=== PATIENT | female | born 1995 | race Caucasian/White ===

== ENCOUNTER 2023-03-11 15:26 | Emergency (ER) | payer OTHER, SELFPAY ==
[2023-03-11 15:40] VITALS: BP 142/86; PULSE 89; RESP 16; TEMP 36.4; O2SAT 100
--- NOTE | 2023-03-11 16:49 | ED.GENADULT ---
HPI - General Adult General Chief complaint: Urogenital-Female Stated complaint: poss uti Source: patient Mode of arrival: ambulatory Limitations: no limitations History of Present Illness HPI narrative: Patient presents for evaluation of urinary symptoms for last 4 days. Symptoms include urinary urgency, dysuria, lower back pain, suprapubic pressure, and urinary frequency. She also reports some hot flashes and nausea. She has had similar symptoms in the past with urinary tract infections. She denies any chills, vomiting, vaginal bleeding or discharge. LMP last week in January. She is sexually active with one male partner, not using contraception.l Related Data Home Medications Medication Instructions Recorded Confirmed buspirone 10 mg tablet mg 03/11/23 cyclobenzaprine 5 mg tablet mg 03/11/23 hydroxyzine pamoate 25 mg capsule mg 03/11/23 lamotrigine 25 mg tablet mg 03/11/23 quetiapine 300 mg tablet,extended mg PO 03/11/23 release 24 hr Allergies Allergy/AdvReac Type Severity Reaction Status Date / Time Penicillins Allergy Unknown Verified 03/11/23 15:38 Review of Systems Review of Systems: CONSTITUTIONAL: Reports hot flashes. Denies chills. EYES: Denies visual changes, redness, or discharge. ENT: Denies rhinorrhea, congestion, sore throat, or otalgia. CARDIOVASCULAR: Denies chest pain, palpitations, or edema. RESPIRATORY: Denies cough or dyspnea. GASTROINTESTINAL: Reports suprapubic pressure and nausea. Denies vomiting and diarrhea GENITOURINARY: Reports urinary urgency, frequency, dysuria. Denies hematuria, vaginal bleeding/discharge SKIN: Denies rash or itching. MUSCULOSKELETAL: Reports low back pain. Denies joint pain, or myalgia. NEUROLOGIC: Denies headache, numbness, dizziness, or weakness. PSYCHIATRIC: Denies anxiety or depression. [facility] Past Medical History Medical History Anxiety Surgical History Surgical History No pertinent past surgical history Family History Family History Mother Family history non-contributory Social History Social History Substance use: never Gender identity (if verbalized by the patient): Female Sexual Orientation (if Verbalized by the Patient): Straight or Heterosexual Spiritual care concerns: No Exam Narrative: GENERAL: Well-appearing, well-nourished, and in no acute distress. HEAD: Normocephalic, atraumatic. EYES: PERRLA and EOMI. ENT: Nares clear, no rhinorrhea or epistaxis. Mucous membranes moist. Oropharynx without tonsillar hypertrophy exudate or other lesions. Bilateral TMs pearly humphrey nonbulging NECK: Supple. No adenopathy or masses. No carotid bruits or JVD CHEST: Clear to auscultation. No respiratory distress. No wheezes rales or rhonchi HEART: Regular rate and rhythm. No murmur heard. Normal peripheral pulses. ABDOMEN: Soft, nontender, nondistended, normal active bowel sounds. BACK: No CVA tenderness EXTREMITIES: Normal range of motion. No edema. SKIN: Warm, dry, no rash. NEURO: No focal deficits. Alert and oriented x3. PSYCH: Normal mood and affect. Course Course Emergency Course: This is a 27-year-old female who presented for evaluation of urinary symptoms consistent with those previously experience with urinary tract infections in the past. Positive leukocytes today. Will treat with Macrobid. Increase hydration. Pyridium for burning. Follow up with primary provider. Go to the ER for worsening symptoms. Patient in agreement with plan care Level of Care: Express Care Visit Vital Signs Vital signs: Vital Signs Temperature 36.4 C L 03/11/23 15:40 Pulse Rate 89 03/11/23 15:40 Respiratory Rate 16 03/11/23 15:40 Blood Pressure 142/86 H 03/11/23 15:40 Pulse O
== END 2023-03-11 17:01 | disposition home or self-care (01) ==
PROVIDERS: Emergency Provider Nurse Practitioner; PCP Family Medicine
DX: N39.0 Urinary tract infection, site not specified (principal); F41.9 Anxiety disorder, unspecified
CPT/HCPCS: 81003; 87077; 87086; 87186; 99213; G0463

== ENCOUNTER 2023-03-15 17:43 | Emergency (ER) | payer OTHER, SELFPAY ==
[2023-03-15 17:46] VITALS: BP 172/105; PULSE 136; RESP 20; TEMP 36.8; O2SAT 98
--- NOTE | 2023-03-15 18:41 | ED.FEMALEGU ---
HPI - Female Genitourinary General Chief complaint: Urogenital-Female Stated complaint: UTI still bad Time Seen by Provider: 03/15/23 18:35 Source: patient and RN notes reviewed Mode of arrival: ambulatory Limitations: no limitations History of Present Illness HPI Narrative: 27-year-old female presents complaint of ?urinary urgency, dysuria, lower back pain, suprapubic pressure, and urinary frequency.? Reports hot flashes have resolved since onset. Patient was seen on 03/11/2023 for the same complaint, prescribed Macrobid and Pyridium. She reports compliance with medication. Denies improvement in symptoms. She has had similar symptoms in the past with urinary tract infections.? She denies any chills, vomiting, vaginal bleeding or discharge.? LMP last week in January.? She is sexually active with one male partner, not using contraception. Denies concern for STD. Related Data Home Medications Medication Instructions Recorded Confirmed buspirone 10 mg tablet mg 03/11/23 cyclobenzaprine 5 mg tablet mg 03/11/23 hydroxyzine pamoate 25 mg capsule mg 03/11/23 lamotrigine 25 mg tablet mg 03/11/23 quetiapine 300 mg tablet,extended mg PO 03/11/23 release 24 hr Allergies Allergy/AdvReac Type Severity Reaction Status Date / Time Penicillins Allergy Unknown Verified 03/11/23 15:38 Review of Systems Review of Systems: CONSTITUTIONAL: Denies body aches, fever, chills, or sweats. CARDIOVASCULAR: Denies chest pain, palpitations, or edema. RESPIRATORY: Denies cough or dyspnea. GASTROINTESTINAL: Denies abdominal pain, nausea, vomiting, or diarrhea. GENITOURINARY: Reports dysuria, frequency, urgency, denies hematuria, flank pain SKIN: Denies rash, itching, or wounds. MUSCULOSKELETAL: Denies back pain or myalgia. [facility] Past Medical History Medical History Anxiety Surgical History Surgical History No pertinent past surgical history Family History Family History Mother Family history non-contributory Social History Social History Substance use: never Gender identity (if verbalized by the patient): Female Sexual Orientation (if Verbalized by the Patient): Straight or Heterosexual Spiritual care concerns: No Comments At time of signature, I have reviewed and agree with nursing past medical, surgical, social and family history unless otherwise noted. Please see nursing chart for further information. There is no relevant family history pertinent to the presenting complaint Exam Narrative: GENERAL: Well-appearing and in no acute distress. ENT: Mucous membranes pink and moist. NECK: Normal AROM. Supple. CHEST: No respiratory distress. Clear to auscultation. HEART: Regular rate and rhythm. ABDOMEN: Soft, nondistended, normal active bowel sounds. mild suprapubic tenderness with palpation. No CVA tenderness SKIN: Warm, dry, no rash. NEURO: No focal deficits. Alert and oriented x3. Gait steady. PSYCH: Anxious. Course Course Emergency Course: Patient is aware of diagnosis, understands and agrees to treatment plan. Anticipatory guidance given. Patient agrees to follow-up as directed and is aware of reasons to seek care at the emergency department. Portions of this record may have been created with voice recognition software Level of Care: Express Care Visit Vital Signs Vital signs: Vital Signs Temperature 98.2 F 03/15/23 17:46 Pulse Rate 136 H 03/15/23 17:46 Respiratory Rate 03/15/23 17:46 Blood Pressure 172/105 H 03/15/23 17:46 Pulse Oximetry 98 03/15/23 17:46 Oxygen Delivery Room Air 03/15/23 17:46 Temperature 98.2 F 03/15/23 17:46 Pulse Rate 136 H 03/15/23 17:46 Respiratory Rate 03/15/23 17:46 Blood Pressure 172/105 H 03/15
== END 2023-03-15 18:54 | disposition home or self-care (01) ==
PROVIDERS: Emergency Provider Nurse Practitioner Family; PCP Family Medicine
DX: N39.0 Urinary tract infection, site not specified (principal)
CPT/HCPCS: 99213; G0463

== ENCOUNTER 2024-05-09 20:54 | Observation (INO) | payer MEDICAID, SELFPAY ==
--- NOTE | ~2024-05-09 | CT_ITS ---
History: Altered mental status PROCEDURE: CT head without contrast. COMPARISON: None TECHNIQUE: Axial imaging of the head performed from the skull base to the vertex without IV contrast. Sagittal a nd coronal reformations obtained. DLP: 681 mGy-cm FINDINGS: The ventricles are normal in size, shape and position. There is no mass, mass effect or midline shift. There is no abnormal extra-axial fluid collection or intracranial hemorrhage. Visualized paranasal sinuses are clear. The mastoid air cells are well aerated. No acute displaced fractures within the overlying cranium. Impression: No acute intracranial hemorrhage or suspicious mass effect. Reviewed, dictated and finalized at location A. [employer] Impression: No acute intracranial hemorrhage or suspicious mass effect.
--- NOTE | ~2024-05-09 | CT_ITS ---
EXAMINATION: CT abdomen pelvis w con DATE: 05/10/2024 01:28 INDICATION: Right flank pain. TECHNIQUE: Computed tomography (CT) of the abdomen and pelvis was performed with 100 mL Omnipaque 350 intravenous contrast. Automated exposure control and iterative reconstruction technique were employe d. The dose-length product was 312.40 mGy-cm. COMPARISON: None. FINDINGS: The visualized portions of the lung bases are clear without pneumonia or pleural effusion. The heart size is normal. No pericardial effusion. The liver, gallbladder, spleen, pancreas, adrenal glands, and kidneys are normal. The appendix measures 9 mm in diameter, but there is no fat stranding around the appendix. There are no pathologically enlarged lymph nodes. There is no free intraperiton eal fluid. There is mild thoracic and lumbar spondylosis. IMPRESSION: 1. Appendiceal diameter of 9 mm without findings of inflammation. This finding is indeterminate for a cute appendicitis. Reviewed, dictated and finalized at location A. [employer] IMPRESSION: 1. Appendiceal diameter of 9 mm without findings of inflammation. This finding is indeterminate for acute appendicitis.
[2024-05-09 20:50] VITALS: BP 140/94; PULSE 100; RESP 18; TEMP 36.6; O2SAT 100
[2024-05-09 21:06] VITALS: PULSE 98
[2024-05-09 21:09] VITALS: BP 140/94; PULSE 95; RESP 17; TEMP 36.6; O2SAT 100
[2024-05-09 22:12] LABS: BEDSIDEPREGUCG Negative (Negative)
[2024-05-09 22:14] LABS: Glucose Point of Care 67 mg/dl (65-105)
[2024-05-09 22:53] LABS: Basophils Absolute Auto 0.1 K/mm3 (0.0-0.1); Basophils Percent Auto 0.6 % (0.2-1.2); Eosinophils Absolute Auto 0.2 K/mm3 (0-0.3); Eosinophils Percent Auto 1.9 % (0-4.4); Hematocrit 35.2 % (37.0-47.0); Hemoglobin 11.8 g/dL (12.0-15.0); Immature Granulocyte Absolute 0.02 K/mm3 (0.00-0.031); Immature Granulocyte Percent A 0.2 % (0-0.5); Lymphocytes Absolute Auto 1.96 K/mm3 (0.9-3.2); Lymphocytes Percent Auto 22.1 % (18.3-44.2); Mean Corpuscular HGB Conc 33.5 g/dl (32-36); Mean Corpuscular Hemoglobin 28.5 pg (26-34); Mean Platelet Volume 9.1 fl (7.4-10.4); Monocytes Absolute Auto 0.7 K/mm3 (0.1-0.6); Monocytes Percent Auto 7.7 % (2.6-8.5); Neutrophils Percent Auto 67.5 % (45.5-73.1); Platelet Count Result 348 k/mm3 (150-375); Red Blood Count 4.14 M/mm3 (4.2-5.4); Red Cell Distribution Width 12.6 % (11.5-14.5); White Blood Count 8.9 K/mm3 (4.5-10.0)
[2024-05-09 23:03] LABS: Acetaminophen < 10 ug/mL (10-30); Ammonia < 9 umol/L (9-30); Ethanol < 10 mg/dL (<10); Salicylate < 1.0 mg/dL (2-20)
[2024-05-09 23:03] LABS: Alanine Aminotransferase 20 U/L (6-35); Albumin Level 4.4 g/dL (3.5-5.1); Alkaline Phosphatase 100 U/L (38-126); Anion Gap 13 mmol/L (4-12); Aspartate Amino Transferase 29 U/L (14-36); Bilirubin,Total 1.6 mg/dL (0.2-1.3); Blood Urea Nitrogen 17 mg/dL (7-17); Calcium 9.2 mg/dL (8.4-10.2); Carbon Dioxide 21 mmol/L (22-30); Chloride 102 mmol/L (98-107); Creatine Kinase 278 U/L (30-135); Estimated CRCL calculation 91 ml/min; Estimated Glomerular Filt Rate > 60; Glucose 76 mg/dL (65-110); Potassium 3.6 mmol/L (3.4-5.0); Sodium 136 mmol/L (137-145)
[2024-05-09 23:25] LABS: Barbiturate Screen Urine Negative (Negative); Benzodiazepines Screen Urine Negative (Negative)
[2024-05-09 23:28] LABS: Add Urine Microscopic? YES; Appearance Urine Turbid (Clear); Bacteria Urine 4+ /hpf; Bilirubin Urine 2+ (Negative); Blood Urine 2+ (Negative); Color Urine Red (Yellow); Glucose Urine UA Negative (Negative); Ketones Urine 2+ mg/dL (Negative); Leukocyte Esterase Ur 2+ LEU/UL (Negative); Need Manual Microscopic Reviewed; Nitrate Urine Positive (Negative); Non Pathogenic Casts 0-2; Protein Urine 2+ mg/dL (Negative); RBC Urine >100 /hpf (0-2); Specific Grav Ur 1.034 (1.001-1.035); Squamous Epithelial Cell Urine Moderate /hpf (Few); Urobilinogen Urine 0.2 mg/dL (<2.0)
[2024-05-09 23:29] LABS: Cocaine Screen Urine Negative (Negative); Methadone Screen Urine Negative (Negative); Opiate Screen Urine Negative (Negative); Phencyclidine Screen Urine Negative (Negative)
[2024-05-09 23:31] LABS: WBC Urine 16-20 /hpf (0-3)
[2024-05-09 23:52] VITALS: BP 141/85; PULSE 101; RESP 18; O2SAT 100
[2024-05-10 00:18] LABS: Cannabinoid Screen Urine Negative (Negative)
[2024-05-10 00:47] LABS: Amphetamine Screen Urine Positive (Negative)
--- NOTE | 2024-05-10 01:39 | ED.AMS ---
HPI - Altered Mental Status General Chief Complaint: Altered Mental Status Stated Complaint: confused Time Seen by Provider: 05/09/24 21:34 Source: patient and EMS Mode of arrival: EMS Limitations: no limitations History of Present Illness HPI narrative: This is a 29-year-old female, with history of bipolar disorder, brought in by EMS after being found lying on the floor of a local business. The patient states she was walking around town though does not know why. EMS noted the same with orientation x2. The patient states she has not been taking her medications for bipolar disorder for the past several months. She complains of mild throbbing headache but denies weakness /numbness. She denies suicidal or homicidal ideations or hallucinations. She complains of mild suprapubic abdominal pain but has no other complaints at this time. Related Data Home Medications Medication Instructions Recorded Confirmed buspirone 10 mg tablet 15 mg PO BID 03/11/23 05/10/24 cyclobenzaprine 5 mg tablet 5 mg PO DAILY PRN Muscle Spasm 03/11/23 05/10/24 hydroxyzine pamoate 25 mg capsule 25 mg PO QID 03/11/23 05/10/24 lamotrigine 25 mg tablet 150 mg PO BID 03/11/23 05/10/24 quetiapine 300 mg tablet,extended 300 mg PO HS 03/11/23 05/10/24 release 24 hr multivitamin with minerals-folic 1 tablet PO DAILY 05/10/24 05/10/24 acid 0.4 mg tablet Allergies Allergy/AdvReac Type Severity Reaction Status Date / Time Penicillins Allergy Unknown Verified 05/09/24 21:07 Review of Systems Review of Systems: All systems reviewed & are unremarkable except as noted in HPI and below PMFSH Past Medical History Medical History (Updated 05/10/24 @ 07:55 by Timothy Sadler MD) Anxiety Bipolar disorder Surgical History Surgical History No pertinent past surgical history Family History Family History Mother Family history non-contributory Social History Social History Smoking status: Current every day smoker Alcohol intake: former Substance use: former Substance use type: former substance user Do You Feel Safe in your Home?: Yes Lack of Transportation: No Lack of Food: Sometimes True Current Housing: I Have Housing Concerned About Future Housing: YES Difficulty Paying Gas/Electric Bills: YES Difficulty Paying for Meds: YES Currently Unemployed: YES Education: Trade/Vocational Certificate Difficulty w/ Childcare or Family Care: No Gender identity (if verbalized by the patient): Female Sexual Orientation (if Verbalized by the Patient): Straight or Heterosexual Spiritual care concerns: Yes Exam Narrative: GENERAL: Well-developed, well-nourished, and in no acute distress. HEAD: Normocephalic, atraumatic. EYES: PERRLA and EOMI. CHEST: Clear to auscultation. No respiratory distress. No wheezes rales or rhonchi HEART: Regular rate and rhythm. No murmur heard. Normal peripheral pulses. ABDOMEN: Soft, mild right lower quadrant tenderness to palpation without rebound or guarding, nondistended, normal active bowel sounds. EXTREMITIES: Normal range of motion. No edema. SKIN: Warm, dry, no rash. NEURO: Alert and oriented x3. No focal deficit. Moving all 4 limbs spontaneously PSYCH: Flattened mood and affect. Course Course Emergency Course: 03:58 - imaging results delayed due to technical difficulties experience by Radiology overnight. Labs demonstrate mild anemia with hemoglobin of 11.8 but is otherwise unremarkable. Chemistries demonstrate mild hyponatremia with sodium of 136 but is otherwise unremarkable. CK mildly elevated at 278 with a normal creatinine of 0.7. The patient tested negative for ammonia, salicylates, acetaminophen or alcohol. Urine drug screen was positive for amphetamines. Urinalysis showed changes consistent with UTI. CT of the head not concerning for acute intracranial process. STAT Rad interpretation of CT abdomen pelvis demonstrates enlargement of the appendix to 9 mm without surrounding fluid are other obvious inflammatory changes. This was described as equivocal for Appendicitis. Considering the patient's tenderness and findings on urinalysis, I suspect pyelonephritis as the cause of her abdominal pain and altered mental status. Will treat with Rocephin. I discussed the patient with hospitalist, Dr. Kimble who accepts admission. Vital Signs Vital signs: Vital Signs Temperature 97.9 F 05/09/24 20:50 Pulse Rate 100 05/09/24 20:50 Respiratory Rate 18 05/09/24 20:50 Blood Pressure 140/94 H 05/09/24 20:50 Pulse Oximetry 100 05/09/24 20:50 Oxygen Delivery Room Air 05/09/24 20:50 Temperature 96.5 F L 05/10/24 04:45 Pulse Rate 96 05/10/24 04:45 Respiratory Rate 16 05/10/24 04:45 Blood Pressure 120/68 05/10/24 04:45 Pulse Oximetry 100 05/10/24 04:45 Oxygen Delivery Room Air 05/10/24 07:35 MDM - Altered Mental Status MDM Narrative Medical decision making narrative: Plan: Labs, imaging, test, reassess Differential Diagnosis Differential diagnosis: Likely hypoglycemia, hyponatremia, subarachnoid hemorrhage and other (drug/alcohol intoxication, , medication noncompliance, bipolar disorder, UTI, pyelonephritis, rhabdomyolysis, metabolic abnormality, other) Lab Data 05/09/24 22:45 05/09/24 22:46 Labs: Lab Results 05/09/24 05/09/24 05/09/24 Range/Units 22:09 22:11 22:45 WBC 8.9 (4.5-10.0) K/mm3 RBC 4.14 L (4.2-5.4) M/mm3 Hgb 11.8 L (12.0-15.0) g/dL Hct 35.2 L (37.0-47.0) % MCV 85.0 (80-100) fl MCH 28.5 (26-34) pg MCHC 33.5 (32-36) g/dl RDW 12.6 (11.5-14.5) % Plt Count 348 (150-375) k/mm3 MPV 9.1 (7.4-10.4) fl Immature Gran % (Auto) 0.2 (0-0.5) % Neut % (Auto) 67.5 (45.5-73.1) % Lymph % (Auto) 22.1 (18.3-44.2) % [place] % (Auto) 7.7 (2.6-8.5) % Eos % (Auto) 1.9 (0-4.4) % Baso % (Auto) 0.6 (0.2-1.2) % Lymph # (Auto) 1.96 (0.9-3.2) K/mm3 [place] # (Auto) 0.7 H (0.1-0.6) K/mm3 Eos # (Auto) 0.2 (0-0.3) K/mm3 Baso # (Auto) 0.1 (0.0-0.1) K/mm3 Abs Immat Gran (auto) 0.02 (0.00-0.031) K/mm3 Absolute Neuts (auto) 6.0 (1.3-6.7) K/mm3 Absolute Nucleated RBC 0.000 (0.0-0.012) K/mm3 Nucleated RBC % 0.0 (0.0-0.2) % Sodium (137-145) mmol/L Potassium (3.4-5.0) mmol/L Chloride (98-107) mmol/L Carbon Dioxide (22-30) mmol/L Anion Gap (4-12) mmol/L BUN (7-17) mg/dL Creatinine (0.7-1.0) mg/dL Estim Creat Clear Calc ml/min Estimated GFR (59 - ) Glucose (65-110) mg/dL POC Capillary Glucose 67 (65-105) mg/dl Calcium (8.4-10.2) mg/dL Total Bilirubin (0.2-1.3) mg/dL AST (14-36) U/L ALT (6-35) U/L Alkaline Phosphatase (38-126) U/L Ammonia < 9 L (9-30) umol/L Total Creatine Kinase (30-135) U/L Total Protein (6.3-8.2) g/dL Albumin (3.5-5.1) g/dL Urine Color Red H (Yellow) Urine Appearance Turbid H (Clear) Urine pH 5.0 (5.0-9.0) Ur Specific [place] 1.034 (1.001-1.035) Urine Protein 2+ H (Negative) mg/dL Urine Glucose (UA) Negative (Negative) mg/dL Urine Ketones 2+ H (Negative) mg/dL Ur Blood (Man) 2+ H (Negative) Urine Nitrate Positive H (Negative) Urine Bilirubin 2+ H (Negative) Urine Urobilinogen 0.2 (<2.0) mg/dL Add Ur Microanalysis Reviewed Leukocyte Esterase Rfl 2+ H (Negative) EVITA/UL Urine RBC >100 H (0-2) /hpf Urine WBC 16-20 H (0-3) /hpf Ur Squamous Epith Cells Moderate (Few) /hpf Urine Bacteria 4+ H /hpf Urine Casts 0-2 POC Urine HCG, Qual Negative (Negative) Salicylates < 1.0 L (2-20) mg/dL Urine Opiates Screen Negative (Negative) Urine Methadone Screen Negative (Negative) Acetaminophen < 10 L (10-30) ug/mL Ur Barbiturates Screen Negative (Negative) Ur Phencyclidine Scrn Negative (Negative) Ur Amphetamine Screen Positive A (Negative) U Benzodiazepines Scrn Negative (Negative) Urine Cocaine Screen Negative (Negative) U Cannabinoids Screen Negative (Negative) Ethyl Alcohol < 10 (<10) mg/dL 05/09/24 Range/Units 22:46 WBC (4.5-10.0) K/mm3 RBC (4.2-5.4) M/mm3 Hgb (12.0-15.0) g/dL Hct (37.0-47.0) % MCV (80-100) fl MCH (26-34) pg MCHC (32-36) g/dl RDW (11.5-14.5) % Plt Count (150-375) k/mm3 MPV (7.4-10.4) fl Immature Gran % (Auto) (0-0.5) % Neut % (Auto) (45.5-73.1) % Lymph % (Auto) (18.3-44.2) % [place] % (Auto) (2.6-8.5) % Eos % (Auto) (0-4.4) % Baso % (Auto) (0.2-1.2) % Lymph # (Auto) (0.9-3.2) K/mm3 [place] # (Auto) (0.1-0.6) K/mm3 Eos # (Auto) (0-0.3) K/mm3 Baso # (Auto) (0.0-0.1) K/mm3 Abs Immat Gran (auto) (0.00-0.031) K/mm3 Absolute Neuts (auto) (1.3-6.7) K/mm3 Absolute Nucleated RBC (0.0-0.012) K/mm3 Nucleated RBC % (0.0-0.2) % Sodium 136 L (137-145) mmol/L Potassium 3.6 (3.4-5.0) mmol/L Chloride 102 (98-107) mmol/L Carbon Dioxide 21 L (22-30) mmol/L Anion Gap 13 H (4-12) mmol/L BUN 17 (7-17) mg/dL Creatinine 0.70 (0.7-1.0) mg/dL Estim Creat Clear Calc 91 ml/min Estimated GFR > 60 (59 - ) Glucose 76 (65-110) mg/dL POC Capillary Glucose (65-105) mg/dl Calcium 9.2 (8.4-10.2) mg/dL Total Bilirubin 1.6 H (0.2-1.3) mg/dL AST 29 (14-36) U/L ALT 20 (6-35) U/L Alkaline Phosphatase 100 (38-126) U/L Ammonia (9-30) umol/L Total Creatine Kinase 278 H (30-135) U/L Total Protein 8.0 (6.3-8.2) g/dL Albumin 4.4 (3.5-5.1) g/dL Urine Color (Yellow) Urine Appearance (Clear) Urine pH (5.0-9.0) Ur Specific [place] (1.001-1.035) Urine Protein (Negative) mg/dL Urine Glucose (UA) (Negative) mg/dL Urine Ketones (Negative) mg/dL Ur Blood (Man) (Negative) Urine Nitrate (Negative) Urine Bilirubin (Negative) Urine Urobilinogen (<2.0) mg/dL Add Ur Microanalysis Leukocyte Esterase Rfl (Negative) EVITA/UL Urine RBC (0-2) /hpf Urine WBC (0-3) /hpf Ur Squamous Epith Cells (Few) /hpf Urine Bacteria /hpf Urine Casts POC Urine HCG, Qual (Negative) Salicylates (2-20) mg/dL Urine Opiates Screen (Negative) Urine Methadone Screen (Negative) Acetaminophen (10-30) ug/mL Ur Barbiturates Screen (Negative) Ur Phencyclidine Scrn (Negative) Ur Amphetamine Screen (Negative) U Benzodiazepines Scrn (Negative) Urine Cocaine Screen (Negative) U Cannabinoids Screen (Negative) Ethyl Alcohol (<10) mg/dL Discharge Plan Discharge Clinical Impression: AMS (altered mental status), Amphetamine abuse, Pyelonephritis, Elevated creatine kinase Patient Disposition: Still a Patient Condition: Serious Time of Disposition: 03:58
[2024-05-10 02:35] VITALS: BP 106/67; PULSE 103; RESP 17; O2SAT 100
--- NOTE | 2024-05-10 03:52 | P.HP_ITS ---
H&P: HPI History of Present Illness Date/Time: 05/10/24 03:52 Chief Complaint: ams Narrative: THIS IS A 29-YEAR-OLD FEMALE PATIENT WAS BROUGHT TO THE EMERGENCY ROOM DUE TO ALTERED MENTAL STATUS. I AM UNABLE TO OBTAIN ANY HISTORY MEANINGFUL FROM PATIENT AT THE TIME OF MY VISIT PATIENT IS CONFUSED AND OBTUNDED. PRELIMINARY WORKUP WAS SIGNIFICANT FOR URINALYSIS WITH NUMEROUS WBCS PRESENT A URINE TOX WAS SIGNIFICANT FOR PRESENCE OF AMPHETAMINE. PROCEDURE: CT head without contrast. COMPARISON: None TECHNIQUE: Axial imaging of the head performed from the skull base to the vertex without IV contrast. Sagittal and coronal reformations obtained. DLP: 681 mGy-cm FINDINGS: The ventricles are normal in size, shape and position. There is no mass, mass effect or midline shift. There is no abnormal extra-axial fluid collection or intracranial hemorrhage. Visualized paranasal sinuses are clear. The mastoid air cells are well aerated. No acute displaced fractures within the overlying cranium. Impression: No acute intracranial hemorrhage or suspicious mass effect. EXAMINATION: CT abdomen pelvis w con DATE: 05/10/2024 01:28 INDICATION: Right flank pain. TECHNIQUE: Computed tomography (CT) of the abdomen and pelvis was performed with 100 mL Omnipaque 350 intravenous contrast. Automated exposure control and iterative reconstruction technique were employed. The dose-length product was 312.40 mGy-cm. COMPARISON: None. FINDINGS: The visualized portions of the lung bases are clear without pneumonia or pleural effusion. The heart size is normal. No pericardial effusion. The liver, gallbladder, spleen, pancreas, adrenal glands, and kidneys are normal. The appendix measures 9 mm in diameter, but there is no fat stranding around the appendix. There are no pathologically enlarged lymph nodes. There is no free intraperitoneal fluid. There is mild thoracic and lumbar spondylosis. IMPRESSION: 1. Appendiceal diameter of 9 mm without findings of inflammation. This finding is indeterminate for acute appendicitis. Review of Systems Review of Systems: ROS unobtainable: Yes unobtainable due to mental status ( CONFUSION/LETHARGY) PMFSH Past Medical History Medical History (Updated 05/10/24 @ 15:25 by Marisa Durbin NP) Anxiety Bipolar disorder Surgical History Surgical History No pertinent past surgical history Family History Family History Mother Family history non-contributory Social History Social History Smoking status: Current every day smoker Alcohol intake: former Substance use: former Substance use type: former substance user Do You Feel Safe in your Home?: Yes Lack of Transportation: No Lack of Food: Sometimes True Current Housing: I Have Housing Concerned About Future Housing: YES Difficulty Paying Gas/Electric Bills: YES Difficulty Paying for Meds: YES Currently Unemployed: YES Education: Trade/Vocational Certificate Difficulty w/ Childcare or Family Care: No Gender identity (if verbalized by the patient): Female Sexual Orientation (if Verbalized by the Patient): Straight or Heterosexual Spiritual care concerns: Yes Meds Home Medications and Allergies Home Medications Medication Instructions Recorded Confirmed Type buspirone 10 mg tablet 15 mg PO BID 03/11/23 05/10/24 History lamotrigine 25 mg tablet 100 mg PO BID 03/11/23 05/10/24 History multivitamin with minerals-folic 1 tablet PO DAILY 05/10/24 05/10/24 History acid 0.4 mg tablet trazodone 50 mg tablet 25 mg PO HS 05/10/24 05/10/24 History Allergies Allergy/AdvReac Type Severity Reaction Status Date / Time Penicillins Allergy Unknown Verified 05/09/24 21:07 Vital Signs Vital Signs - 24 hr 05/09/24 20:50 05/09/24 21:06 05/09/24 21:09 Temperature 97.9 F Pulse Rate 100 98 Respiratory Rate 18 Blood Pressure 140/94 H Pulse Oximetry 100 100 Oxygen Delivery Room Air Room Air 05/09/24 21:09 05/09/24 23:52 05/10/24 02:35 Temperature 97.9 F Pulse Rate 95 101 H 103 H Respiratory Rate 17 18 17 Blood Pressure 140/94 H 141/85 H 106/67 Pulse Oximetry 100 100 100 Oxygen Delivery Exam Narrative: PATIENT IS LAYING IN A STRETCHER Const: General: comfortable, no acute distress, well developed, alert, awake and average body habitus Nutritional Appearance: average body habitus Orientation/consciousness: oriented to person and oriented to place Other: WELL-APPEARING HENMT: Head: normal to inspection, normocephalic and atraumatic Ears: hearing grossly normal bilaterally Face/Nose/Sinus: normal facial exam Face and sinus: normal facial exam Eyes: General: appearance normal, both eyes and all related structures Pupils: Equal, round and reactive pupils present EOM: EOMs intact bilaterally Neck: Neck: full ROM, no lymphadenopathy and no JVD Thyroid: thyroid normal Lymphatic: no lymphadenopathy noted Resp: Effort & Inspection: normal respiratory effort and able to speak in complete sentences Auscultation: clear to auscultation bilaterally Cardio: Jugular venous distension: no JVD Rate: regular rate Rhythm: regular rhythm Heart sounds: S1 normal heart sound present and S2 normal heart sound present GI: GI Palp: Yes Soft to palpation and Yes No hepatosplenomegaly present : General: Yes deferred Skin: Rashes: no rashes Wounds: no wounds Neuro: General: oriented to person, no focal motor deficits, CN's II-XI intact bilaterally and Unable to assess gait Cranial nerves: Yes CN's II-XII intact bilaterally and Yes Equal, round and reactive pupils present Cognition (Neuro): abnormal cognition ( CONFUSION/LETHARGY) Speech: normal speech Gait exam (Neuro): Unable to assess gait Motor exam (neuro): 5/5 motor strength present throughout Extrem: General: normal to inspection, full ROM, no joint enlargement and no pedal edema H&P: Results Labs Labs: Short CBC 05/09/24 Range/Units 22:45 WBC 8.9 (4.5-10.0) K/mm3 Hgb 11.8 L (12.0-15.0) g/dL Hct 35.2 L (37.0-47.0) % Plt Count 348 (150-375) k/mm3 BMP 05/09/24 22:46 Sodium 136 L Potassium 3.6 Chloride 102 Carbon Dioxide 21 L BUN 17 Creatinine 0.70 Glucose 76 Calcium 9.2 Cardiac Enzymes 05/09/24 Range/Units 22:46 Total Creatine Kinase 278 H (30-135) U/L Liver Function 05/09/24 Range/Units 22:46 Total Bilirubin 1.6 H (0.2-1.3) mg/dL AST 29 (14-36) U/L ALT 20 (6-35) U/L Alkaline Phosphatase 100 (38-126) U/L Albumin 4.4 (3.5-5.1) g/dL Urine 05/09/24 Range/Units 22:45 Urine Color Red H (Yellow) Urine Appearance Turbid H (Clear) Urine pH 5.0 (5.0-9.0) Ur Specific [place] 1.034 (1.001-1.035) Urine Protein 2+ H (Negative) mg/dL Urine Glucose (UA) Negative (Negative) mg/dL Assessment and Plan Assessment and plan (1) UTI (urinary tract infection): Code(s): N39.0 - Urinary tract infection, site not specified Status: Acute Assessment and Plan: ADMIT TO REGULAR MEDICAL FLOOR STARTED ON [facility] (2) Amphetamine abuse: Code(s): F15.10 - Other stimulant abuse, uncomplicated Status: Acute Assessment and Plan: FOLLOW-UP IN OUTPATIENT SETTING (3) AMS (altered mental status): Code(s): R41.82 - Altered mental status, unspecified Status: Acute Assessment and Plan: LIKELY SECONDARY TO 1 AND 2 SUPPORTIVE CARE Hospitalist MIPS Advance Care Plan I have confirmed that the patient's Advanced Care Plan is present, code status is documented, or surrogate decision maker is listed in patient medical record.: Yes Medication Reconciliation I have utilized all available resources to obtain, update and review the patients current medications (includes all prescriptions, OTC, herbals, cannabis, and nutritional supplements).: Yes
--- NOTE | 2024-05-10 04:28 | PC.NURSE ---
Attempted to call report to 3rd med surg and was told RN was in a room passing meds and would call me right back.
[2024-05-10 04:45] VITALS: BP 120/68; PULSE 96; RESP 16; TEMP 35.8; O2SAT 100
[2024-05-10 05:00] VITALS: BMI 29.5
[2024-05-10 06:35] LABS: Glucose Point of Care 179 mg/dl (65-105)
[2024-05-10] MEDS: lamoTRIgine 50 MG TABLET 150 MG PO ×2 (08:35→16:56)
[2024-05-10] MEDS: busPIRone HCL 5 MG TABLET 15 MG PO ×2 (08:36→16:56)
[2024-05-10] MEDS: hydrOXYzine pamoate 25 MG CAPSULE PO ×4 (08:36→22:08)
[2024-05-10] MEDS: PHENAZOPYRIDINE HCL 100 MG TABLET 200 MG PO ×3 (08:38→16:56)
[2024-05-10] MEDS: ACETAMINOPHEN 325 MG TABLET 650 MG PO (08:47)
[2024-05-10 10:00] LABS: Basophils Absolute Auto 0.1 K/mm3 (0.0-0.1); Eosinophils Absolute Auto 0.2 K/mm3 (0-0.3); Eosinophils Percent Auto 3.1 % (0-4.4); Hematocrit 35.6 % (37.0-47.0); Hemoglobin 11.4 g/dL (12.0-15.0); Immature Granulocyte Absolute 0.01 K/mm3 (0.00-0.031); Immature Granulocyte Percent A 0.2 % (0-0.5); Lymphocytes Absolute Auto 1.39 K/mm3 (0.9-3.2); Lymphocytes Percent Auto 24.3 % (18.3-44.2); Mean Corpuscular Hemoglobin 27.7 pg (26-34); Mean Corpuscular Volume 86.4 fl (80-100); Mean Platelet Volume 8.8 fl (7.4-10.4); Monocytes Absolute Auto 0.6 K/mm3 (0.1-0.6); Monocytes Percent Auto 9.8 % (2.6-8.5); Neutrophils Absolute Auto 3.5 K/mm3 (1.3-6.7); Neutrophils Percent Auto 61.6 % (45.5-73.1); Platelet Count Result 329 k/mm3 (150-375); Red Blood Count 4.12 M/mm3 (4.2-5.4); Red Cell Distribution Width 12.5 % (11.5-14.5); White Blood Count 5.7 K/mm3 (4.5-10.0)
[2024-05-10 10:27] VITALS: O2SAT 100
[2024-05-10 10:29] LABS: Alanine Aminotransferase 22 U/L (6-35); Albumin Level 3.7 g/dL (3.5-5.1); Alkaline Phosphatase 76 U/L (38-126); Anion Gap 7 mmol/L (4-12); Aspartate Amino Transferase 27 U/L (14-36); Bilirubin,Total 1.6 mg/dL (0.2-1.3); Blood Urea Nitrogen 17 mg/dL (7-17); Calcium 8.8 mg/dL (8.4-10.2); Carbon Dioxide 26 mmol/L (22-30); Chloride 103 mmol/L (98-107); Estimated CRCL calculation 80 ml/min; Estimated Glomerular Filt Rate > 60; Glucose 107 mg/dL (65-110); Potassium 3.9 mmol/L (3.4-5.0); Sodium 136 mmol/L (137-145)
[2024-05-10 14:00] VITALS: BP 93/42; PULSE 92; RESP 16; TEMP 36.6; O2SAT 99
--- NOTE | 2024-05-10 15:03 | PM.IMPN ---
Progress Note: A&P Assessment and Plan (1) UTI (urinary tract infection): Code(s): N39.0 - Urinary tract infection, site not specified Status: Acute Assessment and Plan: - UA consistent with UTI. - Blood and urine cultures collected. - Started on Ceftriaxone. - Follow cultures. (2) Amphetamine abuse: Code(s): F15.10 - Other stimulant abuse, uncomplicated Status: Acute Assessment and Plan: - Toxicology screen +ve for amphetamine. - Currently no signs of withdrawals. - Monitor closely for withdrawals. (3) AMS (altered mental status): Code(s): R41.82 - Altered mental status, unspecified Status: Acute Assessment and Plan: - Likely socondary to # 1 and # 2. - Mgt as # 1 and # 2. - Mentation appears normalized except for sleepiness currently. (4) Anxiety: Code(s): F41.9 - Anxiety disorder, unspecified Status: Acute Assessment and Plan: - Continue buspirone. (5) Bipolar disorder: Code(s): F31.9 - Bipolar disorder, unspecified Status: Acute Assessment and Plan: - Continue Lamotrigine. Plan Patient admitted for altered mentation and noted with UTI and tox screen +ve for amphetamines. Mgt as above and we'll monitor for changes in mentation as we follow cultures. Time Spent With Patient Time with patient: 15 - 25 minutes Subjective Date/time seen: 05/10/24 15:03 Patient states she feels alright and has no pain or other distressful symptoms. States she uses Meth once a while and can't recall the last time, maybe a week ago. States just feels tired but has no pain or other distress. Interval history: Patient very sleepy on bedrest, appears to be in no distressful symptoms. Patient admitted for altered mental status, with tox screen positive for methamphetamine and UA positive for UTI. Patient currently fairly well oriented but very sleepy. Review of Systems Review of Systems: All systems reviewed & are unremarkable except as noted in HPI and below Exam Narrative: General: Very sleepy but fairly well oriented when she wakes up. HEENT: Atraumatic, PERRL, EOM, moist mucosa. Neck: Supple. Lungs: Clear bilaterally. Heart: RRR, no murmurs. Abdomen: Soft, non-tender, non-distended, +ve bowel sounds X4 quadrants. Skin: Warm and dry. No lesions noted. Extremities: [employer] and moist. No edema. 2+ pedal pulses. Neuro: Very sleepy but well oriented. No focal neuro deficits noted. Psych: Flat affect but co-operative. Objective Data Vital Signs Vital Signs: Vital Signs - 24 hr 05/09/24 20:50 05/09/24 21:06 05/09/24 21:09 Temperature 97.9 F Pulse Rate 100 98 Respiratory Rate 18 Blood Pressure 140/94 H Pulse Oximetry 100 100 Oxygen Delivery Room Air Room Air 05/09/24 21:09 05/09/24 23:52 05/10/24 02:35 Temperature 97.9 F Pulse Rate 95 101 H 103 H Respiratory Rate 17 18 17 Blood Pressure 140/94 H 141/85 H 106/67 Pulse Oximetry 100 100 100 Oxygen Delivery 05/10/24 04:45 05/10/24 07:35 05/10/24 10:27 Temperature 96.5 F L Pulse Rate 96 Respiratory Rate 16 Blood Pressure 120/68 Pulse Oximetry 100 100 Oxygen Delivery Room Air Room Air 05/10/24 08:50 05/10/24 14:00 Temperature 97.9 F Pulse Rate 92 Respiratory Rate 16 Blood Pressure 93/42 L Pulse Oximetry 99 Oxygen Delivery Room Air Intake/Output Intake/Output: Intake & Output 05/07/24 05/08/24 05/09/24 05/10/24 23:59 23:59 23:59 23:59 Intake Total 750 Balance 750 Meds/Results Medications: Active Medications Generic Name Dose Route Start Last Admin Trade Name Freq PRN Reason Stop Dose Admin Acetaminophen 650 mg 05/10/24 03:58 05/10/24 08:47 Acetaminophen 325 Mg Tablet PO 650 mg Q4H PRN Administration Mild Pain (1-3) or Fever Buspirone HCl 15 mg 05/10/24 09:00 05/10/24 08:36 Buspirone Hcl 5 Mg Tablet PO 15 mg BID PATRICIA Administration Cyclobenzaprine HCl 5 mg 05/10/24 06:30 Cyclobenzaprine Hcl 5 Mg Tablet PO DAILY PRN Muscle Spasm Hydroxyzine Pamoate 25 mg 05/10/24 09:00 05/10/24 12:18 Hydroxyzine Pamoate 25 Mg Capsule PO 25 mg QID PATRICIA Administration Lamotrigine 150 mg 05/10/24 09:00 05/10/24 08:35 Lamotrigine 50 Mg Tablet PO 150 mg BID [facility] Administration Phenazopyridine HCl 200 mg 05/10/24 09:00 05/10/24 12:18 Phenazopyridine Hcl 100 Mg Tablet PO 200 mg TID PATRICIA Administration Quetiapine Fumarate 200 mg 05/10/24 21:00 Quetiapine Fumarate Xr 200 Mg Tab.Er.24h BY MOUTH [facility] Quetiapine Fumarate 100 mg 05/10/24 21:00 Quetiapine Fumarate Xr 50 Mg Tab.Er.24h PO [facility] Radiology Results: ITS Impressions Head CT 05/09/24 23:39 Impression: No acute intracranial hemorrhage or suspicious mass effect. Abdomen/Pelvis CT 05/10/24 06:37 IMPRESSION: 1. Appendiceal diameter of 9 mm without findings of inflammation. This finding is indeterminate for acute appendicitis. Labs Labs: Laboratory Results - last 24 hr 05/09/24 05/09/24 05/09/24 22:09 22:11 22:45 WBC 8.9 RBC 4.14 L Hgb 11.8 L Hct 35.2 L MCV 85.0 MCH 28.5 MCHC 33.5 RDW 12.6 Plt Count 348 MPV 9.1 Immature Gran % (Auto) 0.2 Neut % (Auto) 67.5 Lymph % (Auto) 22.1 [place] % (Auto) 7.7 Eos % (Auto) 1.9 Baso % (Auto) 0.6 Lymph # (Auto) 1.96 [place] # (Auto) 0.7 H Eos # (Auto) 0.2 Baso # (Auto) 0.1 Abs Immat Gran (auto) 0.02 Absolute Neuts (auto) 6.0 Absolute Nucleated RBC 0.000 Nucleated RBC % 0.0 Sodium Potassium Chloride Carbon Dioxide Anion Gap BUN Creatinine Estim Creat Clear Calc Estimated GFR Glucose POC Capillary Glucose 67 Calcium Total Bilirubin AST ALT Alkaline Phosphatase Ammonia < 9 L Total Creatine Kinase Total Protein Albumin Urine Color Red H Urine Appearance Turbid H Urine pH 5.0 Ur Specific [place] 1.034 Urine Protein 2+ H Urine Glucose (UA) Negative Urine Ketones 2+ H Ur Blood (Man) 2+ H Urine Nitrate Positive H Urine Bilirubin 2+ H Urine Urobilinogen 0.2 Add Ur Microanalysis Reviewed Leukocyte Esterase Rfl 2+ H Urine RBC >100 H Urine WBC 16-20 H Ur Squamous Epith Cells Moderate Urine Bacteria 4+ H Urine Casts 0-2 POC Urine HCG, Qual Negative Salicylates < 1.0 L Urine Opiates Screen Negative Urine Methadone Screen Negative Acetaminophen < 10 L Ur Barbiturates Screen Negative Ur Phencyclidine Scrn Negative Ur Amphetamine Screen Positive A U Benzodiazepines Scrn Negative Urine Cocaine Screen Negative U Cannabinoids Screen Negative Ethyl Alcohol < 10 05/09/24 05/10/24 05/10/24 22:46 06:31 09:55 WBC 5.7 RBC 4.12 L Hgb 11.4 L Hct 35.6 L MCV 86.4 MCH 27.7 MCHC 32.0 RDW 12.5 Plt Count 329 MPV 8.8 Immature Gran % (Auto) 0.2 Neut % (Auto) 61.6 Lymph % (Auto) 24.3 [place] % (Auto) 9.8 H Eos % (Auto) 3.1 Baso % (Auto) 1.0 Lymph # (Auto) 1.39 [place] # (Auto) 0.6 Eos # (Auto) 0.2 Baso # (Auto) 0.1 Abs Immat Gran (auto) 0.01 Absolute Neuts (auto) 3.5 Absolute Nucleated RBC 0.000 Nucleated RBC % 0.0 Sodium 136 L 136 L Potassium 3.6 3.9 Chloride 102 103 Carbon Dioxide 21 L 26 Anion Gap 13 H 7 BUN 17 17 Creatinine 0.70 0.80 Estim Creat Clear Calc 91 80 Estimated GFR > 60 > 60 Glucose 76 107 POC Capillary Glucose 179 H Calcium 9.2 8.8 Total Bilirubin 1.6 H 1.6 H AST 29 27 ALT 20 22 Alkaline Phosphatase 100 76 Ammonia Total Creatine Kinase 278 H Total Protein 8.0 7.0 Albumin 4.4 3.7 Urine Color Urine Appearance Urine pH Ur Specific [place] Urine Protein Urine Glucose (UA) Urine Ketones Ur Blood (Man) Urine Nitrate Urine Bilirubin Urine Urobilinogen Add Ur Microanalysis Leukocyte Esterase Rfl Urine RBC Urine WBC Ur Squamous Epith Cells Urine Bacteria Urine Casts POC Urine HCG, Qual Salicylates Urine Opiates Screen Urine Methadone Screen Acetaminophen Ur Barbiturates Screen Ur Phencyclidine Scrn Ur Amphetamine Screen U Benzodiazepines Scrn Urine Cocaine Screen U Cannabinoids Screen Ethyl Alcohol Quality VTE Prophylaxis VTE prophylaxis: mechanical ordered Hospitalist MIPS Advance Care Plan I have confirmed that the patient's Advanced Care Plan is present, code status is documented, or surrogate decision maker is listed in patient medical record.: Yes Medication Reconciliation I have utilized all available resources to obtain, update and review the patients current medications (includes all prescriptions, OTC, herbals, cannabis, and nutritional supplements).: Yes
[2024-05-10 18:00] VITALS: BP 118/60
[2024-05-10 19:30] VITALS: BP 90/50; PULSE 79; RESP 18; TEMP 36.3; O2SAT 97
[2024-05-10] MEDS: LACTATED RINGERS 1,000 ML 999 ML IV CONT (22:07)
[2024-05-11 04:50] VITALS: BP 112/54; PULSE 77; RESP 18; TEMP 36.4; O2SAT 97
[2024-05-11 06:29] LABS: Basophils Percent Auto 0.6 % (0.2-1.2); Eosinophils Absolute Auto 0.2 K/mm3 (0-0.3); Eosinophils Percent Auto 2.8 % (0-4.4); Hemoglobin 10.8 g/dL (12.0-15.0); Immature Granulocyte Absolute 0.02 K/mm3 (0.00-0.031); Immature Granulocyte Percent A 0.4 % (0-0.5); Lymphocytes Absolute Auto 1.36 K/mm3 (0.9-3.2); Lymphocytes Percent Auto 25.6 % (18.3-44.2); Mean Corpuscular HGB Conc 31.8 g/dl (32-36); Mean Corpuscular Hemoglobin 28.2 pg (26-34); Mean Corpuscular Volume 88.8 fl (80-100); Mean Platelet Volume 9.3 fl (7.4-10.4); Monocytes Absolute Auto 0.5 K/mm3 (0.1-0.6); Neutrophils Absolute Auto 3.3 K/mm3 (1.3-6.7); Neutrophils Percent Auto 61.6 % (45.5-73.1); Platelet Count Result 282 k/mm3 (150-375); Red Blood Count 3.83 M/mm3 (4.2-5.4); Red Cell Distribution Width 12.7 % (11.5-14.5); White Blood Count 5.3 K/mm3 (4.5-10.0)
[2024-05-11 06:42] LABS: Anion Gap 2 mmol/L (4-12); Blood Urea Nitrogen 12 mg/dL (7-17); Calcium 8.2 mg/dL (8.4-10.2); Carbon Dioxide 27 mmol/L (22-30); Chloride 108 mmol/L (98-107); Estimated CRCL calculation 80 ml/min; Estimated Glomerular Filt Rate > 60; Glucose 92 mg/dL (65-110); Potassium 4.2 mmol/L (3.4-5.0); Sodium 137 mmol/L (137-145)
[2024-05-11] MEDS: lamoTRIgine 50 MG TABLET 150 MG PO (10:24)
[2024-05-11] MEDS: hydrOXYzine pamoate 25 MG CAPSULE PO (10:24)
[2024-05-11] MEDS: PHENAZOPYRIDINE HCL 100 MG TABLET 200 MG PO (10:25)
[2024-05-11] MEDS: busPIRone HCL 5 MG TABLET 15 MG PO (10:25)
[2024-05-11 10:27] VITALS: BP 105/60
[2024-05-11 14:00] VITALS: BP 106/69; PULSE 82; RESP 20; TEMP 36.3; O2SAT 100
--- NOTE | 2024-05-11 14:14 | P.DS_ITS ---
DS: Admitting Diagnosis Discharge Date 05/11/2024 Admitting Diagnosis Altered Mental Status DS: Discharge Diagnosis Discharge Diagnosis (1) UTI (urinary tract infection): Code(s): N39.0 - Urinary tract infection, site not specified Status: Acute Assessment and Plan: - Patient's UA consistent with UTI on admission. - Blood and urine cultures collected. - Blood cultures NGTD. - Urine culture growing mixed leana. - Patient with no fevers, WBC's wnl, and no urinary symptoms. - Patient received 2 doses if Ceftriaxone inpatient. - No further antibiotics warranted. - Patient wants to be discharged home and states will follow-up with PCP outpatient. - No further abx or work-up needed at this time. (2) Amphetamine abuse: Code(s): F15.10 - Other stimulant abuse, uncomplicated Status: Acute Assessment and Plan: - Admits to using Methamphetamine possibly weekly. - States was using it daily but has cut down much recently. - Encouraged with cessation. - Outpatient follow-up for drugs cessation assistance, resources to be provided. - No signs of withdrawals noted inpatient. (3) AMS (altered mental status): Code(s): R41.82 - Altered mental status, unspecified Status: Acute Assessment and Plan: - Possibly related to drugs use vs possible UTI. - Resolved prior to discharge. - Patient well oriented prior to discharge. (4) Tobacco abuse: Code(s): Z72.0 - Tobacco use Status: Acute Assessment and Plan: - Encouraged with cessation. Plan Discharge home on self care. DS: Summary Hospital Course Reason for hospitalization: Altered Mental Status Hospital Course: Patient was brought in to the ER with reports of altered mentation. Patient had fairly unremarkable labs, with her CT head negative for acute as well. Pt was reporting some right-flank pain and had a CT abd/pelvis done that showed Appendiceal diameter of 9 mm without findings of inflammation. This finding is indeterminate for acute appendicitis. The flank pain resolved with no interventions. Patient's UA was suspicious for possible UTI, with her toxicology screen also positive for amphetamines. She was admitted for stabilization of symptoms, with patient started on IV abx after blood and urine cultures were obtained. Patient has been treated with IV Ceftriaxone, with her blood cultures NGTD, and her urine cultures growing mixed leana, likely contaminant. Patient denies any urinary symptoms and her labs are fairly unremarkable. No fevers noted inpatient, and her mentation normalized the day after her admission. Patient wants to be discharged home and will follow-up with her PCP. No signs of withdrawals noted inpatient and patient is medically stable for discharge with no acute distress noted or reported prior to discharge. Patient tolerated meals well inpatient without any GI discomfort. Patient counseled on drugs cessation and advised to follow-up outpatient with resources that would assist her with cessation. Time spent discussing smoking cessation with patient: 3 to 10 minutes Status at Discharge Functional status at discharge: independent ambulation Overall status at discharge: patient is back to baseline Time Spent with Patient Time attestation: Total time spent providing and/or coordinating discharge services: Time spent: Greater than 30 minutes Exam Narrative: General: Well appearing and in no acute distress. HEENT: Atraumatic, PERRL, EOM, moist mucosa. Neck: Supple. Lungs: Clear bilaterally. Heart: RRR, no murmurs. Abdomen: Soft, non-tender, non-distended, +ve bowel sounds X4 quadrants. Skin: Warm, dry and pink. No lesions noted. Extremities: [place] and moist. No edema. 2+ pedal pulses. Neuro: Alert and well oriented. No focal neuro deficits noted. Psych: Flat affect but co-operative. DS: Data Data Completed and Pending Labs on day of discharge: Labs from last 24 hours 05/11/24 06:07 WBC 5.3 RBC 3.83 L Hgb 10.8 L Hct 34.0 L MCV 88.8 MCH 28.2 MCHC 31.8 L RDW 12.7 Plt Count 282 MPV 9.3 Immature Gran % (Auto) 0.4 Neut % (Auto) 61.6 Lymph % (Auto) 25.6 [place] % (Auto) 9.0 H Eos % (Auto) 2.8 Baso % (Auto) 0.6 Lymph # (Auto) 1.36 [place] # (Auto) 0.5 Eos # (Auto) 0.2 Baso # (Auto) 0.0 Abs Immat Gran (auto) 0.02 Absolute Neuts (auto) 3.3 Absolute Nucleated RBC 0.000 Nucleated RBC % 0.0 Sodium 137 Potassium 4.2 Chloride 108 H Carbon Dioxide 27 Anion Gap 2 L BUN 12 D Creatinine 0.80 Estim Creat Clear Calc 80 Estimated GFR > 60 Glucose 92 Calcium 8.2 L Preliminary micro results at discharge 05/10/24 01:39 Blood Culture - Preliminary Blood 05/10/24 01:39 Blood Culture - Preliminary Blood Discharge Plan Discharge Attending physician on discharge: Nagi Velez Discharging Clinician: Marisa Durbin Anticipated Discharge Date/Time: 05/11/24 14:35 Patient Disposition: Home, Self-Care Activity: as tolerated Diet: as tolerated Patient Instructions: Antibiotic Form, How to Stop Smoking (DC), Cigarette Smoking and Your Health (GEN) Stand Alone Forms: General Discharge Information Follow-up/Referrals: PHYSICIAN NOT ON STAFF,NONSTAFF [Primary Care Provider] - 1 Week Discharge Medications: Continued lamotrigine 25 mg tablet 100 mg PO BID buspirone 10 mg tablet 15 mg PO BID multivit with min-folic acid [Adult One Daily Multivitamin] 0.4 mg Tablet 1 tablet PO DAILY trazodone 50 mg Tablet 25 mg PO HS Date of admission: 05/10/24 03:58 Primary Care Provider: PHYSICIAN NOT ON STAFF,NONSTAFF Admitting Provider: Nancy Kimble V. Attending physician on admission: Nancy Kimble V. Condition: Stable Quality If No VTE Prophylaxis Answer both mechanical and pharmacologic: Reason no mechanical VTE proph: low risk/not indicated Reason no pharmacologic proph: low risk/not indicated Hospitalist MIPS Heart Failure (Exclusion) Patient has history of Heart Transplant or Left Ventricular Assistive Device?: No IF YES, STOP HERE Heart Failure (Qualifier) Patient has current or prior documentation of LVEF less than or equal to 40%, or mod/servere depressed LVSF?: No IF NO, STOP HERE
== END 2024-05-11 16:35 | disposition home or self-care (01) ==
LOC: ANHED 22:05 → ANH3MEDSUR 05-10 04:32
PROVIDERS: Nurse Practitioner Adult Health; Admitting Provider Internal Medicine; Emergency Provider Preventive Medicine Aerospace Medicine; Visit Provider Internal Medicine
DX: N39.0 Urinary tract infection, site not specified (principal); F15.10 Other stimulant abuse, uncomplicated; R41.82 Altered mental status, unspecified; F17.200 Nicotine dependence, unspecified, uncomplicated; R79.89 Other specified abnormal findings of blood chemistry; F41.9 Anxiety disorder, unspecified; F31.9 Bipolar disorder, unspecified; Z79.899 Other long term (current) drug therapy
CPT/HCPCS: 36415; 70450; 74177; 80048; 80053; 80143; 80179; 80307; 81001; 81025; 82077; 82140; 82550; 82948; 85025; 87040; 87086; 96365; 96374; 99285; A9270; G0378; G0379; J0696; J7120; Q9967

== ENCOUNTER 2024-06-19 22:32 | Emergency (ER) | payer OTHER, SELFPAY ==
[2024-06-19 22:35] VITALS: BP 143/90; PULSE 100; RESP 20; TEMP 36.4; O2SAT 98
--- NOTE | 2024-06-19 22:50 | PC.NURSE ---
Pt eloped from room out back door before ERP could evaluate. Pt was refusing any treatment when this RN talked to pt for an evaluation stating she didn't need any help.
== END 2024-06-19 22:50 | disposition left against medical advice (07) ==
PROVIDERS: Emergency Provider Emergency Medicine
DX: R41.82 Altered mental status, unspecified (principal)
CPT/HCPCS: 99199

== ENCOUNTER 2024-06-20 00:41 | Emergency (ER) | payer OTHER, SELFPAY ==
[2024-06-20 00:46] VITALS: BP 138/62; PULSE 84; RESP 20; TEMP 36.6; O2SAT 98
[2024-06-20] MEDS: HALOPERIDOL LACTATE 5 MG/ML VIAL IM (00:55)
[2024-06-20 01:10] LABS: Basophils Absolute Auto 0.05 K/mm3 (0.00-0.10); Basophils Percent Auto 0.3 % (0.0-1.0); Eosinophils Absolute Auto 0.02 K/mm3 (0.02-0.50); Eosinophils Percent Auto 0.1 % (1.0-6.0); Hematocrit 40.3 % (35.0-49.0); Hemoglobin 13.7 g/dL (12.0-15.0); Immature Granulocyte Absolute 0.06 K/mm3 (0.00-0.00); Immature Granulocyte Percent A 0.4 % (0.0-0.0); Lymphocytes Absolute Auto 1.37 K/mm3 (1.10-4.50); Lymphocytes Percent Auto 9.5 % (18.0-42.0); Mean Corpuscular Hemoglobin 28.2 pg (27.0-31.0); Mean Corpuscular Volume 82.9 fL (78.0-102.0); Mean Platelet Volume 8.8 fl (9.2-11.8); Monocytes Absolute Auto 0.52 K/mm3 (0.10-0.90); Monocytes Percent Auto 3.6 % (2.0-11.0); Neutrophils Absolute Auto 12.38 K/mm3 (1.70-7.20); Neutrophils Percent Auto 86.1 % (50.0-70.0); Platelet Count Result 431 K/mm3 (150-420); Red Blood Count 4.86 M/mm3 (4.20-5.40); Red Cell Distribution Width 12.5 % (11.6-14.4); White Blood Count 14.4 K/mm3 (4.8-10.8)
--- NOTE | 2024-06-20 01:10 | PC.NURSE ---
Pt is talking to people and no one is in room, she is staring blankly into space and having conversation with no one in room. Pt sitting in chair after given injection of Haldol ordered per ERP. Pt was able to be de-escalated and cooperated for blood draw. Pt given water to drink and pt stared at it before taking cup of water.
--- NOTE | 2024-06-20 01:15 | PC.NURSE ---
Pt now lying down on bed w/ blanket wrapped around her.
[2024-06-20 01:26] LABS: Alanine Aminotransferase 26 U/L (14-59); Albumin Level 4.4 g/dL (3.4-5.0); Alkaline Phosphatase 115 U/L (46-116); Anion Gap 16 mmol/L (4-12); Aspartate Amino Transferase 21 U/L (15-37); Bilirubin,Total 0.8 mg/dL (0.00-1.00); Blood Urea Nitrogen 20 mg/dL (7-18); Calcium 9.6 mg/dL (8.5-10.1); Carbon Dioxide 23 mmol/L (21-32); Chloride 99 mmol/L (98-108); Estimated CRCL calculation 56 ml/min; Estimated Glomerular Filt Rate 51; Glucose 87 mg/dL (70-99); Osmolality Calculated 287 mOsm/kg (285-295); Potassium 3.1 mmol/L (3.5-5.1); Salicylate 1.1 mg/dL (2.8-20.0); Sodium 138 mmol/L (136-145); Total Protein 8.5 g/dL (6.4-8.2)
--- NOTE | 2024-06-20 01:26 | PC.NURSE ---
Pt lying on bed, still disoriented and c/o being cold and needing warmth. Pt given warm blankets, she is cooperative and lying on bed at this time. Lights dimmed, pt won't answer any questions about who she is or how she got here or where she is trying to go. Pt asked to take her clothes off and put our scrubs on and she stated she will not take them off because they are hers. Pt emptied pockets and she has no ID noted, she has x2 cell phones in her pocket and her vape. Pt did put hospital paper scrubs on over her street clothes.
[2024-06-20 01:36] LABS: Ethanol 7 mg/dL (0-6)
[2024-06-20 01:42] LABS: Acetaminophen < 2 ug/mL (10-30)
--- NOTE | 2024-06-20 02:29 | PC.NURSE ---
Pt sleeping, RR even and nonlabored. Will continue to monitor and reassess pt in AM.
--- NOTE | 2024-06-20 03:37 | PC.NURSE ---
Pt continues to sleep, RR even and nonlabored. Will continue to monitor until able to re-evaluate.
[2024-06-20 05:00] VITALS: BP 100/58; PULSE 105; RESP 16; TEMP 36.6; O2SAT 96
--- NOTE | 2024-06-20 05:03 | PC.NURSE ---
Pt awakens slightly when VS taken then rolls over back to sleep. Will reassess when pt is awake, continuing to monitor.
--- NOTE | 2024-06-20 06:25 | PC.NURSE ---
Pt sleeping, RR even and nonlabored, continuing to monitor until awake and able to reassess.
--- NOTE | 2024-06-20 07:03 | PC.NURSE ---
Pt awake and ambulated to and gave urine for UA. She is more alert and knows she is in [facility] but confused to events that occurred last noc. Pt is able to answer questions more appropriately at this time. She states she has no home and stays w/ friends where ever she can. Pt denies any use of drugs but states she has used meth in past. Pt wanting something to eat and drink. Report given to DONNA Reynolds
--- NOTE | 2024-06-20 07:04 | ED_ITS ---
HPI - Psych General Chief Complaint: Psychiatric Symptoms Stated Complaint: psychiatric Time Seen by Provider: 06/20/24 00:43 Source: patient Mode of arrival: ambulatory Limitations: no limitations History of Present Illness HPI Narrative: this is a 29-year-old female with history of psychiatric disorder, with psychosis depression was dropped off by a known person and with patient has been having delusions, patient has a history of psychiatric disorder is not compliant with her medication. The patient has been in and out of the facility and brought back by police. The patient is not homicidal not suicidal. Currently no fever chills no chest pain or shortness of breath patient does have delusions. complaint: altered mental status Onset (ago): hour(s) Duration: constant History of same: Yes Relieving factors: medication Exacerbating factors: none Associated psychiatric symptoms: delusions Associated symptoms: confusion Related Data Home Medications ?Medication ?Instructions ?Recorded ?Confirmed ?Last Taken ?Type buspirone 10 mg tablet 15 mg PO BID 03/11/23 05/10/24 04/09/24 History lamotrigine 25 mg tablet 100 mg PO BID 03/11/23 05/10/24 Unknown History multivitamin with minerals-folic 1 tablet PO DAILY 05/10/24 05/10/24 Unknown History acid 0.4 mg tablet trazodone 50 mg tablet 25 mg PO HS 05/10/24 05/10/24 Unknown History Allergies Allergy/AdvReac Type Severity Reaction Status Date / Time Penicillins Allergy Unknown Verified 05/09/24 21:07 Review of Systems 2 Review of Systems: All systems reviewed & are unremarkable except as noted in HPI and below PMFSH Past Medical History Medical History Bipolar disorder Anxiety Surgical History Surgical History No pertinent past surgical history Family History Family History Mother Family history non-contributory Social History Social History Smoking status: Current every day smoker Alcohol intake: former Substance use: former Substance use type: amphetamines Do You Feel Safe in your Home?: Yes Lack of Transportation: No Lack of Food: Sometimes True Current Housing: I Have Housing Concerned About Future Housing: YES Difficulty Paying Gas/Electric Bills: YES Difficulty Paying for Meds: YES Currently Unemployed: YES Education: Trade/Vocational Certificate Difficulty w/ Childcare or Family Care: No Gender identity (if verbalized by the patient): Female Sexual Orientation (if Verbalized by the Patient): Straight or Heterosexual Spiritual care concerns: Yes Exam 2 Const: General: no acute distress Nutritional Appearance: well nourished Limitations: altered mental status and behavioral limitations Neck: Neck: normal visual inspection Chest: Chest palpation & inspection: normal inspection of the chest Resp: Effort & Inspection: normal respiratory effort Auscultation: clear to auscultation bilaterally Cardio: Rate: regular rate Rhythm: regular rhythm GI: GI Palp: Yes Soft to palpation Auscultation: normal bowel sounds Urinary Catheter: Urinary Catheter: patent and draining Skin: General skin exam: normal color Neuro: General: moves all extremities Psych: Attitude: cooperative Course Course Emergency Course: Patient had blood work performed which shows a potassium of 3.1, and CBC of 14,000. Patient received 5mg of IM Haldol and blown 0.5mg of Ativan. The patient for reassessment is more alert and less confused. Patient was given a dose of p.o. potassium. Vital Signs Vital signs: Vital Signs Temperature 36.6 C 06/20/24 00:46 Pulse Rate 84 06/20/24 00:46 Respiratory Rate 20 06/20/24 00:46 Blood Pressure 138/62 06/20/24 00:46 Pulse Oximetry 98 06/20/24 00:46 Oxygen Delivery Room Air 06/20/24 00:46 Temperature 36.9 C 06/20/24 07:42 Pulse Rate 103 H 06/20/24 07:42 Respiratory Rate 18 06/20/24 07:42 Blood Pressure 110/62 06/20/24 07:42 Pulse Oximetry 100 06/20/24 07:42 Oxygen Delivery Room Air 06/20/24 07:42 MDM - Psych Lab Data 06/20/24 01:02 06/20/24 01:02 Labs: Lab Results 06/20/24 06/20/24 Range/Units 01:02 07:10 WBC 14.4 H (4.8-10.8) K/mm3 RBC 4.86 (4.20-5.40) M/mm3 Hgb 13.7 (12.0-15.0) g/dL Hct 40.3 (35.0-49.0) % MCV 82.9 (78.0-102.0) fL MCH 28.2 (27.0-31.0) pg MCHC 34.0 (32-36) g/dL RDW 12.5 (11.6-14.4) % Plt Count 431 H (150-420) K/mm3 MPV 8.8 L (9.2-11.8) fl Immature Gran % (Auto) 0.4 H (0.0-0.0) % Neut % (Auto) 86.1 H (50.0-70.0) % Lymph % (Auto) 9.5 L (18.0-42.0) % [place] % (Auto) 3.6 (2.0-11.0) % Eos % (Auto) 0.1 L (1.0-6.0) % Baso % (Auto) 0.3 (0.0-1.0) % Lymph # (Auto) 1.37 (1.10-4.50) K/mm3 [place] # (Auto) 0.52 (0.10-0.90) K/mm3 Eos # (Auto) 0.02 (0.02-0.50) K/mm3 Baso # (Auto) 0.05 (0.00-0.10) K/mm3 Abs Immat Gran (auto) 0.06 H (0.00-0.00) K/mm3 Absolute Neuts (auto) 12.38 H (1.70-7.20) K/mm3 Absolute Nucleated RBC 0.00 (0.00-0.00) K/mm3 Nucleated RBC % 0.0 (0-0.0) % Sodium 138 (136-145) mmol/L Potassium 3.1 L (3.5-5.1) mmol/L Chloride 99 (98-108) mmol/L Carbon Dioxide 23 (21-32) mmol/L Anion Gap 16 H (4-12) mmol/L BUN 20 H (7-18) mg/dL Creatinine 1.22 H (0.55-1.02) mg/dL Estim Creat Clear Calc 56 ml/min Estimated GFR 51 L (59 - ) Glucose 87 (70-99) mg/dL Calculated Osmolality 287 (285-295) mOsm/kg Calcium 9.6 (8.5-10.1) mg/dL Total Bilirubin 0.8 (0.00-1.00) mg/dL AST 21 (15-37) U/L ALT 26 (14-59) U/L Alkaline Phosphatase 115 (46-116) U/L Total Protein 8.5 H (6.4-8.2) g/dL Albumin 4.4 (3.4-5.0) g/dL Urine Color Dark yellow (Yellow) Urine Appearance Sl cloudy A (Clear) Urine pH 5.5 (5.0-8.0) Ur Specific [place] >= 1.030 H (1.010-1.020) Urine Protein 1+ H (Negative) Urine Glucose (UA) Negative (Negative) Urine Ketones 2+ H (Negative) Ur Blood (Man) Negative (Negative) Urine Nitrate Positive H (Negative) Urine Bilirubin 1+ H (Negative) Urine Urobilinogen 1.0 (0.2-1.0) mg/dL Leukocyte Esterase Rfl Negative (Negative) EVITA/UL Urine RBC None seen (0-2) /hpf Urine WBC None seen (0-3) /hpf Ur Squamous Epith Cells Few (Few) /hpf Urine Bacteria 4+ H (None) /hpf Urine Mucus Moderate H /lpf Salicylates 1.1 L (2.8-20.0) mg/dL Urine Opiates Screen Negative (Negative) Urine Methadone Screen Negative (Negative) Acetaminophen < 2 L (10-30) ug/mL Ur Barbiturates Screen Negative (Negative) Ur Phencyclidine Scrn Negative (Negative) Ur Amphetamine Screen Positive A (Negative) U Benzodiazepines Scrn Negative (Negative) [place] Pending Urine Cocaine Screen Negative (Negative) U Cannabinoids Screen Negative (Negative) Ethyl Alcohol 7 H (0-6) mg/dL Critical Care Time Critical Care Time Critical Care Time: No Discharge Plan Discharge Clinical Impression: UTI (urinary tract infection) Bipolar disorder Qualifiers: Active/Remission status: currently active Current bipolar episode type: mixed C urrent episode severity: severe Psychotic features: with psychotic features Q ualified Code(s): F31.64 - Bipolar disorder, current episode mixed, severe, with psychotic features Patient Disposition: Home, Self-Care Condition: Stable Instructions: Antibiotic Form, Urinary Tract Infection in Women (ED), Bipolar Disorder (ED) Additional Instructions: advised to keep follow-up with Primary /with psychiatrist /take medication as prescribed. Patient Language: Luxem[place]ish Prescriptions: New nitrofurantoin monohyd/m-cryst [Macrobid] 100 mg capsule 100 mg PO Q12H 7 Days Qty: 14 0RF Rx Instructions: must administer with a meal/food No Action lamotrigine 25 mg tablet 100 mg PO BID buspirone 10 mg tablet 15 mg PO BID multivit with min-folic acid 0.4 mg Tablet 1 tablet PO DAILY trazodone 50 mg Tablet 25 mg PO HS Follow-up/Referrals: UNKNOWN,DOCTOR [Primary Care Provider] - Time of Disposition: 07:29
[2024-06-20 07:18] LABS: Add Urine Microscopic? YES; Appearance Urine Sl Cloudy (Clear); Bilirubin Urine 1+ (Negative); Blood Urine Negative (Negative); Color Urine Dark Yellow (Yellow); Glucose Urine UA Negative (Negative); Ketones Urine 2+ (Negative); Leukocyte Esterase Ur Negative LEU/UL (Negative); Nitrate Urine Positive (Negative); Protein Urine 1+ (Negative); Specific Grav Ur >= 1.030 (1.010-1.020); pH Urine 5.5 (5.0-8.0)
[2024-06-20] MEDS: POTASSIUM BICARBONATE 25 MEQ TABEF 50 MEQ PO (07:22)
[2024-06-20 07:23] LABS: Bacteria Urine 4+ /hpf; Mucus Urine Moderate /lpf; RBC Urine None seen /hpf (0-2); Squamous Epithelial Cell Urine Few /hpf (Few); WBC Urine None seen /hpf (0-3)
[2024-06-20 07:27] LABS: Amphetamine Screen Urine Positive (Negative); Barbiturate Screen Urine Negative (Negative); Benzodiazepines Screen Urine Negative (Negative); Cannabinoid Screen Urine Negative (Negative); Cocaine Screen Urine Negative (Negative); Methadone Screen Urine Negative (Negative); Opiate Screen Urine Negative (Negative); Phencyclidine Screen Urine Negative (Negative)
[2024-06-20 07:42] VITALS: BP 110/62; PULSE 103; RESP 18; TEMP 36.9; O2SAT 100
--- NOTE | 2024-06-20 08:31 | PC.NURSE ---
0793 PT RECEIVED BREAKFAST PT FINISHED BREAKFAST AND IS DRESSED AND WAITING IN WAITING ROOM FOR HER RIDE
--- NOTE | 2024-06-22 12:07 | PC.NURSE ---
PRELIMINARY URINE CULTURE, ESCHERICHIA COLI, WILL CONTINUE TO WATCH FOR FINAL C&S PER DR. PICHARDO
[2024-06-23 15:43] LABS: Lithium <0.3 mmol/L (0.6-1.2)
--- NOTE | 2024-06-23 17:09 | PC.NURSE ---
final urine culture report reviewed. >100,000 Ecoli isolated. susceptible to macrobid. pt prescribed same at discharge. no change in plan of care.
== END 2024-06-20 08:25 | disposition home or self-care (01) ==
PROVIDERS: Emergency Provider Emergency Medicine
DX: N39.0 Urinary tract infection, site not specified (principal); F31.64 Bipolar disorder, current episode mixed, severe, with psychotic features; F17.200 Nicotine dependence, unspecified, uncomplicated
CPT/HCPCS: 36415; 80053; 80143; 80178; 80179; 80307; 81001; 82077; 85025; 87086; 87186; 96372; 99283; A9270; J1630